=== PATIENT | female | born 1990 | race Hispanic/Latino ===

== ENCOUNTER 2017-11-06 09:11 | Emergency (ER) | payer SELFPAY | END 2017-11-06 10:45 | disposition home or self-care (01) | LOC: EDH 09:11 | DX: J01.10 Acute frontal sinusitis, unspecified (principal) | CPT/HCPCS: 87880 ==

== ENCOUNTER 2018-09-21 14:36 | Emergency (ER) | payer OTHER ==
[2018-09-21] MEDS ORDERED: KETOROLAC TROMETHAMINE 60 MG/2 ML VIAL ONE (15:30)
== END 2018-09-21 15:53 | disposition home or self-care (01) ==
LOC: EDH 14:36
DX: S30.0XXA Contusion of lower back and pelvis, initial encounter (principal); W18.39XA Other fall on same level, initial encounter; Y93.89 Activity, other specified; Y92.89 Other specified places as the place of occurrence of the external cause; Y99.8 Other external cause status
CPT/HCPCS: 72220; 81025; 96372; 99285; J1885